=== PATIENT | male | born 1945 | race Caucasian/White ===

== ENCOUNTER → 2016-11-27 | Outpatient (CLI) | payer OTHER, MEDICARE ==
[~2016-11-27] MED LIST: ASPIRIN EC81 MG PO; CIPRO 500MG TA500 MG PO; DEXAMETHASONE4 MG PO; DOCUSATE SODIU100 MG PO; FAMOTIDINE 20MG20 MG PO; FISH OIL CONC1000 MG PO; LIPITOR20 M1 PO; LISINOPRIL/HCTZ1 TA3 PO; MEKINIST2 MG PO; MOBIC15 MG PO; MULTIVITAMIN1 TA1 PO; OMEGA-31 SGL PO; TAFINLAR75 MG PO; TAMSULOSIN HYD0.4 MG PO
[2016-11-27 09:31] LABS: HEMOGLOBIN 12.9 g/dL (14.1-18.0); LYMPH # 1.8 K/mm3 (0.7-4.5)
[2016-11-27 10:27] LABS: BUN 25 mg/dL (7-18); GFR (ESTIMATED) 43 ML/MIN (>60)
== END ==
LOC: LAB 09:15
PROVIDERS: Internal Medicine
DX: R51 Headache (principal); R27.0 Ataxia, unspecified; I10 Essential (primary) hypertension; C43.59 Malignant melanoma of other part of trunk

== ENCOUNTER → 2016-12-08 | Outpatient (CLI) | payer OTHER, MEDICARE ==
--- NOTE | 2016-12-08 10:59 | RADIOLOGY REPORT PS360 ---
MRI-BRAIN W/O HISTORY: HEADACHE, METASTATIC MELANOMA Headache, dizziness, unsteady gait, metastatic melanoma ORDERING PHYSICIAN: Brody Galeana MD PATIENT AGE: 71 years COMPARISON: 07/14/2015 TECHNIQUE: Standard multiplanar multiecho sequences are performed without contrast. FINDINGS: There has been interval development of multiple intra-axial masses with moderate amount of vasogenic edema consistent with metastasis. The lesions are in the anterior right parietal region at 15 x 12 mm, right posterior parietal region at 19 x 17 mm, left mid parietal area at 13 x 13 mm, and left parietal occipital area at 11 mm. There is a moderate amount of surrounding edema. There is an additional lesion involving the right frontoparietal junction medially at 5 mm. There is very minimal midline shift toward the left by approximately 2 mm. No transtentorial or subfalcine herniation. No obvious hemorrhage. No acute cortical infarction. The cerebellopontine angles, cerebellum, and brainstem are unremarkable. There are bilateral mastoid effusions. IMPRESSION: 1. Interval development of multiple intracranial metastasis as described above. 2. Very minimal midline shift toward the left of 2 mm. 3. Bilateral mastoid effusions
== END ==
LOC: RAD 12-07 10:15
DX: R51 Headache (principal); C43.9 Malignant melanoma of skin, unspecified

== ENCOUNTER 2017-03-21 12:06 | Outpatient (CLI) | payer MEDICARE ==
[2017-03-21] VITALS (9 sets, daily range): BP systolic 116–141; BP diastolic 66–84
[~2017-03-21] VITALS: Ht 182.9 cm; Wt 117.9 kg
[2017-03-21 11:21] LABS: HEMOGLOBIN 12.9 g/dL (14.1-18.0); LYMPH # 1.9 K/mm3 (0.7-4.5); LYMPH % 12.4 % (10-50)
[2017-03-21 11:23] LABS: BUN 19 mg/dL (7-18); GFR (ESTIMATED) 50 ML/MIN (>60)
[2017-03-21 11:49] LABS: NEUTROPHILS 76 % (42-76)
[~2017-03-21 12:06] MED LIST changes: +AMLO5TAB PO; +ELIQUIS5 MG PO; +FUROSEMIDE 40MG40 M1 PO; +KLOR-CON M2020 MEQ PO; +PERCOCET 10 MG1 EACH PO
[2017-03-21] MEDS ORDERED: DEXAMETHASONE 4M4 MG PO (12:58)
[2017-03-21] MEDS ORDERED: ZOFRAN4 MG PO (12:59)
== END 2017-03-21 16:50 | disposition home or self-care (01) ==
LOC: COP 12:06
PROVIDERS: Internal Medicine
DX: C43.9 Malignant melanoma of skin, unspecified (principal); R63.0 Anorexia; E86.0 Dehydration

== ENCOUNTER 2017-04-23 10:13 | Outpatient (CLI) | payer MEDICARE ==
[2017-04-23] VITALS (7 sets, daily range): BP systolic 82–108; BP diastolic 54–75
[~2017-04-23 10:13] MED LIST changes: +DEXAMETHASONE 4M4 MG PO; +OXYCODONE HCL20 MG PO; +ZOFRAN4 MG PO
[2017-04-23] MEDS ORDERED: FENTANYL 550 MCG/EAC TD (10:36)
== END 2017-04-23 12:50 | disposition home or self-care (01) ==
LOC: COP 10:13
DX: C43.59 Malignant melanoma of other part of trunk (principal); C79.31 Secondary malignant neoplasm of brain; Z48.00 Encounter for change or removal of nonsurgical wound dressing
CPT/HCPCS: J2405